=== PATIENT | female | born 1985 | race Caucasian/White ===

== ENCOUNTER 2021-11-07 09:48 | Emergency (ER) | payer OTHER, SELFPAY ==
--- NOTE | ~2021-11-07 | XR_ITS ---
EXAMINATION: XR chest 2V DATE: 11/07/2021 10:23 INDICATION: Posterior chest and back pain TECHNIQUE: frontal and lateral views of the chest were obtained. COMPARISON: None FINDINGS: Mild linear discoid atelectasis/scarring at the right middle lobe. No other airspace opacities, pulmo nary edema, pleural effusion or pneumothorax. The cardiomediastinal silhouette is normal. Visualized bones and soft tissues are unremarkable. IMPRESSION: 1. Mild discoid atelectasis/scarring at the right middle lobe. Reviewed, dictated and finalized at location A.
[2021-11-07 09:54] VITALS: BP 144/77; PULSE 79; RESP 14; TEMP 36.6; O2SAT 100
--- NOTE | 2021-11-07 10:46 | ED.URI ---
HPI - URI/Sore Throat General Chief Complaint: Upper Respiratory Infection Stated Complaint: Cough Time Seen by Provider: 11/07/21 10:35 Source: patient and RN notes reviewed Mode of arrival: ambulatory Limitations: no limitations History of Present Illness HPI Narrative: Patient presents today complaining of a nonproductive, aggressive cough since last night with back pain and rib pain that has been progressively getting worse as the cough has been worsening. She also reports some mild shortness of breath associated and mild congestion. She has been taking [place] cold and cough without relief. Denies history of asthma or COPD. Denies fever, rhinorrhea, sore throat she quit smoking 6 months ago. She had COVID-19 6 to 7 weeks ago where her only symptom was a fever. MD elicited complaint: cough Related Data Allergies Allergy/AdvReac Type Severity Reaction Status Date / Time No Known Allergies Allergy Verified 11/07/21 10:05 Review of Systems Review of Systems: CONSTITUTIONAL: Denies body aches, fever, chills, or sweats. EYES: Denies visual changes, redness, or discharge. ENT: Denies rhinorrhea, sore throat, or otalgia.+ Congestion CARDIOVASCULAR: Denies chest pain, palpitations, or edema. RESPIRATORY: + Cough, mild shortness of breath, rib pain GASTROINTESTINAL: Denies abdominal pain, nausea, vomiting, or diarrhea. GENITOURINARY: Denies dysuria or hematuria. SKIN: Denies rash, itching, or wounds. MUSCULOSKELETAL: Denies joint pain, or myalgia.+ Back pain NEUROLOGIC: Denies headache, numbness, tingling, or weakness. PSYCH: Denies depression or anxiety. [facility] Social History Social History (Updated 11/07/21 @ 10:49 by Mi Hu, [facility], ) Smoking status: Former smoker Tobacco type: cigarettes Smoking end date: 06/08/21 Exam Narrative: GENERAL: Well-appearing, well-nourished, and in no acute distress. HEAD: Normocephalic, atraumatic. EYES: EOMI. No redness or drainage. Conjunctivae normal. ENT: Mucous membranes pink and moist. Nares clear. No rhinorrhea. TMs normal bilaterally. Throat normal. Uvula midline. NECK: Normal AROM. Supple. No lymphadenopathy. CHEST: No respiratory distress. Clear to auscultation. Chest is nontender HEART: Regular rate and rhythm. No murmur appreciated. Normal peripheral pulses. MUSCULOSKELETAL: No bony tenderness of the spine. Bilateral lower thoracic paraspinal muscle tenderness EXTREMITIES: Normal range of motion. No edema. SKIN: Warm, dry, no rash. Capillary refill normal. Normal skin turgor. NEURO: No focal deficits. Alert and oriented x3. Gait steady. PSYCH: Normal affect. No signs of depression or anxiety. Course Course Emergency Course: [place] Criteria 0 Level of Care: Express Care Visit Vital Signs Vital signs: Vital Signs Temperature 97.8 F 11/07/21 09:54 Pulse Rate 79 11/07/21 09:54 Respiratory Rate 14 11/07/21 09:54 Blood Pressure 144/77 H 11/07/21 09:54 Pulse Oximetry 100 11/07/21 09:54 Temperature 97.8 F 11/07/21 09:54 Pulse Rate 79 11/07/21 09:54 Respiratory Rate 14 11/07/21 09:54 Blood Pressure 144/77 H 11/07/21 09:54 Pulse Oximetry 100 11/07/21 09:54 Reviewed. Pt has been instructed to follow up with her PCP regarding her elevated blood pressure today. MDM - URI/Sore Throat Differential Diagnosis Differential diagnosis: Likely upper respiratory infection, viral infection, bronchitis and other (Pulmonary embolism, pneumonia) Imaging Data Radiologist's impression: ITS Impressions Chest X-Ray 11/07/21 10:26 IMPRESSION: 1. Mild discoid atelectasis/scarring at the right middle lobe. Critical Care Time Critical Care Time Critical Care Time: No Discharge Plan Discharge Clinical Impression: Bronchitis Upper respiratory infection Qualifiers: URI type: unspecified URI Qualified Code(s): J06.9 - Acute upper respiratory infection, unspecified Patient Disposition: Home, Self-C
== END 2021-11-07 11:03 | disposition home or self-care (01) ==
PROVIDERS: Emergency Provider Nurse Practitioner; PCP Physician Assistant
DX: J40 Bronchitis, not specified as acute or chronic (principal); J06.9 Acute upper respiratory infection, unspecified; Z87.891 Personal history of nicotine dependence
CPT/HCPCS: 71046; 99213; G0463